=== PATIENT | female | born 1975 | race Caucasian/White ===

== ENCOUNTER → 2016-09-30 | Outpatient (CLI) | payer OTHER ==
--- NOTE | 2016-09-30 14:09 | MA ---
Diagnostic Digital Mammogram With iCAD Analysis Clinical Indications: Evaluate palpable area in the periareolar region of the right breast detected b y the patient's health care provider. Technique: Standard cephalocaudal and mediolateral oblique projections were obtained. Also, a cranioc audal spot compression view was performed with attention to the anterior right breast. This examinati on was processed by the iCAD computer aided detection system. Comparison: Baseline study; no previous mammograms have been performed. Breast density: Type D; Extremely dense. Findings: CAD was reviewed. No masses, suspicious calcifications or other signs of malignancy are id entified. No mammographic correlate is found to the palpable area detected by the patient's healthca re provider. Notation is made of prominent glandular tissue in the region. Impression: Palpable area requires further evaluation, BI-RADS 0. Recommendation: Targeted right breast ultrasound which will be subsequently performed today. [facility] will send a result letter to the patient. A verbal report was given to the patient. Dense breast parenchyma diminishes mammographic sensitivity. Negative mammography should not preclude additional workup of a clinically suspicious finding. The patient's information is entered into a reminder system with a target due date for her next mammo gram.
--- NOTE | 2016-09-30 14:47 | US ---
Right Breast Ultrasound History: Evaluate palpable lump. The study is interpreted in conjunction with diagnostic mammography performed earlier today. Technique: Longitudinal and transverse images were obtained utilizing a 15 MHz transducer. Color Dop pler evaluation is employed for assessment of vascularity. Findings: On my physical examination I can feel a small easily palpable area at the 10:00 position of the periareolar right breast. Sonographic interrogation demonstrates normal glandular elements. No s uspicious solid abnormality is seen corresponding to the palpable region. Incidentally, at the 11 to 12:00 position 2 cm from the nipple there is a small nodular opacity measuring 6 x 3 mm. This is well -circumscribed and is not palpable. 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 Impression: Probably benign findings when considering mammographic and sonographic assessment, BI-RAD S 3. Recommendation: Continued clinical follow-up. A 6 month sonographic repeat evaluation is recommended for surveillance of the palpable region as well as the probable fibroadenoma. If the palpable area enlarges or becomes suspicious for any reason, additional evaluation or surgical consultation could be considered. Findings and follow-up recommendations were reviewed with the patient in detail. She is comfortable w ith a 6 month follow-up for surveillance. [facility] will send a result letter to the patient.
== END ==
LOC: FIMAGING 12:21
PROVIDERS: ATTEND Advanced Practice Midwife
DX: N63 Unspecified lump in breast (principal)
CPT/HCPCS: G0204